=== PATIENT | male | born 1970 | race Two or more races ===

== ENCOUNTER 2018-12-04 16:39 | Emergency (ER) | payer BC, MEDICARE ==
[~2018-12-04] VITALS: Ht 167.6 cm; Wt 82.8 kg
--- NOTE | 2018-12-04 19:24 | NUR ---
pt called to room from lobby
[2018-12-04] MEDS ORDERED: LISI40TA PO (19:32)
[2018-12-04] MEDS ORDERED: FAMO-79 PO (19:32)
--- NOTE | 2018-12-04 19:34 | NUR ---
PT HERE FOR RIGHT UPPER LEG SWELLING WITH PAIN. VSS. PT IN NAD. PT WAITING FOR US RESULTS. CALL LIGHT IN REACH
[2018-12-04 20:00] VITALS: BP 128/78
[2018-12-04] MEDS ORDERED: methylPREDNISolone SOD SUCC 125 MG/2 ML IM ONE (20:00)
[2018-12-04] MEDS ORDERED: methylPREDNISolone SOD SUCC 125 MG/2 ML ONE (20:32)
--- NOTE | 2018-12-04 20:37 | NUR ---
Patient given discharge instructions and they have confirmed that they understand the instructions. Patient ambulatory with steady gait.
== END 2018-12-04 20:42 | disposition home or self-care (01) ==
LOC: ED 20:36
DX: M79.651 Pain in right thigh (principal); M25.551 Pain in right hip
CPT/HCPCS: 93971; 96372; 99284; J2930